=== PATIENT | female | born 1960 | race Caucasian/White ===

== ENCOUNTER → 2016-07-14 | Outpatient (CLI) | payer BC ==
[~2016-07-14] MED LIST: ASPIRIN PO; B COMPLEX/FOLIC1 TAB PO; CALCIUM 500 + D1 TAB PO; CENTRUM SILVER PO; FISH OIL 1,0001 CAP PO; IBUPROFEN PO; NAPROXEN PO; VIT E PO
--- NOTE | ~2016-07-14 | US128 ---
[id number] [address] [id number] [id number] MR#: [id number] Acc #: [id number] NAME: MOMO SANCHEZ : 1960 SEX: F STUDY DATE/TIME: 07/14/2016 8:13 UNIT: [facility] ROOM: STUDY DESCRIPTION: Thyroid Attending Physician: Kirt Thomason M.D. Referring Physician: Kirt Thomason M.D. Ordering Physician: Kirt Thomason M.D. Primary Care Physician: Dharmesh Pires M.D. MEDICAL IMAGING REPORT This report is preliminary unless electronic signature is present. EXAM Thyroid ultrasound. DATE 07/14/2016 HISTORY 56-year-old female with papillary thyroid carcinoma, left thyroid lobe resection December 27, 2016. Patient states difficulty swallowing for the past 3 months intermittently. Followup. Observation for metastatic disease or disease recurrence. COMPARISON Thyroid ultrasound 10/01/2015, 06/20/2013. Ultrasound-guided left thyroid nodule fine-needle aspiration 10/12/2015. FINDINGS The left thyroid lobe is surgically absent. The right thyroid lobe measures 4.0 x 1.9 x 1.9 cm. The isthmus measures 2 mm in thickness. There is a solid nodule with internal cystic changes within the right mid to upper thyroid pole. It has a thin hypoechoic halo. Today this nodule measures 2.0 x 1.4 x 1.2 cm. In 2015, the nodule measured 1.4 x 1.5 x 2.1 cm, and in 2013 measuring 2.6 x 1.6 x 1.6 cm. It is not thought to be significantly changed since the most recent examination. A hypoechoic cystic appearing focus is seen just inferior to this dominant nodule measuring 3 x 4 x 3 mm, thought to correspond to what appears to be a hypoechoic nodule or cluster of cysts on the previous 2016 study, where it measured 5 x 4 x 4 mm. It is not thought to be significantly changed. On the previous study, the sap bw developer measured a hypoechoic nodular region in the posterior right lower thyroid pole measuring 5 x 4 x 4 mm. On today's examination, this is only seen in the longitudinal plane measuring 6 mm and is not thought to be significantly changed. No definite new right thyroid nodule is seen. No isthmic nodule is evident. No suspicious microcalcifications. The visualized portion of the left thyroidectomy bed demonstrates no mass lesion. IMPRESSION 1. 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 The dominant solid nodule in the right upper thyroid pole appears roughly stable since 2016 and measures slightly smaller than on the 2014 examination. According to previous supplied history, this has undergone previous fine-needle aspiration. Please correlate with those biopsy results. 2. Other smaller nodules within the right thyroid lobe appear stable. No new right thyroid nodules are evident. 3. Left thyroid lobe resection changes. Dictated by... Lucille Pan M.D. THIS IS AN ELECTRONICALLY VERIFIED REPORT Lucille Pan M.D. at 07/18/2016 8:33 AM ALESHA/gerardo TD: 07/17/2016 10:23 JOB #: [id number] MEDICAL IMAGING REPORT Page 1 of 1
== END | disposition home or self-care (01) ==
LOC: SGUS 07:48
DX: C73 Malignant neoplasm of thyroid gland (principal); E04.2 Nontoxic multinodular goiter
CPT/HCPCS: 36415; 76536; 84432; 84443